=== PATIENT | male | born 1995 | race American Indian/Alaskan Native ===

== ENCOUNTER 2017-04-27 14:05 | Emergency (ER) | payer MEDICAID, OTHER ==
[2017-04-27 14:43] VITALS: TEMP 98.5; BMI 22.1
--- NOTE | 2017-04-27 14:44 | ED PDOC ---
Arrival/HPI - General Time Seen by Provider: 04/27/17 14:32 Historian: Patient - History of Present Illness Narrative History of Present Illness (Text): 04/27/17 14:33 Pt is a 22 year old male, with no past medical history, presents to the Emergency department complaining of a possible broken nose. He reports that five days ago he rolled over on the floor and his nose hit the floor. After this occurred he had epistaxis, had pain in his nose, and noticed bruising between his eyes and cheekbones. He notes that he currently does not feel any pain, but notices a mild difference in his nose symmetry compared to normal. Patient denies any headache, nausea, fever, neck pain, back pain, or other complaints. PMD: Dr. Sylvia Matos Time/Duration: < week (5 days ago) Symptom Onset: Sudden Symptom Course: Improving Activities at Onset: Light Modifying Factors (Text): None Context: Home Associated Symptoms (Text): None Past Medical History - Provider Review Nursing Documentation Reviewed: Yes Family/Social History - Physician Review Nursing Documentation Reviewed: Yes Family/Social History: No Known Family HX Smoking Status: Light Smoker < 10 Cigarettes Daily Hx Alcohol Use: Yes Frequency of alcohol use: Socially Allergies/Home Meds Allergies/Adverse Reactions: Allergies No Known Allergies Allergy (Verified 04/27/17 14:39) Review of Systems - Physician Review All systems were reviewed & negative as marked: Yes - Review of Systems Constitutional: absent: Fevers ENT: Epistaxis (occurred right after hit in the nose), Other (nose is described as crooked) Cardiovascular: absent: Chest Pain Gastrointestinal: absent: Nausea, Vomiting Musculoskeletal: absent: Neck Pain Neurological: absent: Headache Physical Exam Vital Signs Reviewed: Yes Vital Signs Temp Pulse Resp BP Pulse Ox 04/27/17 16:15 61 16 121/58 L 100 04/27/17 14:36 98.5 F 86 14 130/72 98 Temperature: Afebrile Blood Pressure: Normal Pulse: Regular Respiratory Rate: Normal Appearance: Positive for: Well-Appearing, Non-Toxic, Comfortable Pain Distress: None Mental Status: Positive for: Alert and Oriented X 3 - Systems Exam Head: Present: Atraumatic, Normocephalic Extroacular Muscles: Present: EOMI Conjunctiva: Present: Normal Nose (External): Present: Other (non-tender, mild asymmetry) Nose (Internal): Present: No Active Bleeding Neck: Present: Normal Range of Motion Respiratory/Chest: Present: Clear to Auscultation, Good Air Exchange, Respiratory Distress Cardiovascular: Present: Regular Rate and Rhythm, Normal S1, S2. No: Murmurs Upper Extremity: Present: Normal Inspection. No: Cyanosis, Edema Lower Extremity: Present: Normal Inspection. No: Edema Neurological: Present: GCS=15, Speech Normal Skin: Present: Warm, Dry, Normal Color. No: Rashes Psychiatric: Present: Alert, Oriented x 3, Normal Insight, Normal Concentration Medical Decision Making ED Course and Treatment: 04/27/17 14:33 Impression: Nasal trauma Differential Diagnosis included but are not limited to: nasal contusion vs. nasal fracture Plan: -- Facial CT with no contrast -- Reassess and disposition Progress Notes: - RAD Interpretation Radiology Orders: 04/27/17 14:39 ORBITS/ FACIALS W/O CONTRAST [CT] Stat - Scribe Statement The provider has reviewed the documentation as recorded by the Scribe 04/27/2017 Lashaun Ascencio training with Agustin Ibrahim Provider Scribe Attestation: All medical record entries made by the Scribe were at my direction and personally dictated by me. I have reviewed the chart and agree that the record accurately reflects my personal performance of the history, physical exam, medical decision making, and the department course for this patient. I have also personally directed, reviewed, and agree with the discharge instructions and disposition. Disposition/Present on Arrival - Present on Arrival Any Indicators Present on Arrival: No - Disposition Have Diagnosis and Disposition been Completed?: Yes Diagnosis: Nasal bone fracture Disposition: HOME/ ROUTINE Disposition Time: 15:55 Patient Plan: Discharge Condition: STABLE Discharge Instructions (ExitCare): Nasal Fracture (ED) Print Language: CYMRO Additional Instructions: Mr. Marmolejo, thank you for letting us take care of you today. Return to the ER if any problems. You need to follow up with the [id number] (ENT) doctor. His name is Dr. Rubi. Call the phone number listed below to make an appointment with Dr. Rubi. If you are having any pain, take Tylenol. Referrals: Sandeep Rubi DO [Staff Provider] - Follow up with primary Forms: [employer] (Latvian)
--- NOTE | 2017-04-27 15:48 | CT ---
PROCEDURE: CT ORBITS WITHOUT CONTRAST. HISTORY: Nasal trauma; r/o nasal fracture COMPARISON: None available. TECHNIQUE: Axial CT images of the orbits were obtained. Coronal and sagittal reformats were generated. Radiation dose: Total exam DLP = 772.43 mGy-cm. This CT exam was performed using one or more of the following dose reduction techniques: Automated exposure control, adjustment of the mA and/or kV according to patient size, and/or use of iterative reconstruction technique. FINDINGS: There is an acute mildly displaced fracture in the left anterior nasal bone. No acute fracture in the right nasal bone. The nasal septum is deviated to the left. RIGHT ORBIT: RIGHT BONY ORBIT: Normal. RIGHT INTRAORBITAL STRUCTURES: Globe: Normal. Extraocular muscles: Normal. Post septal space: Normal. Optic Nerve: Normal. Lacrimal Apparatus: Normal. RIGHT PRESEPTAL SOFT TISSUES: Normal. LEFT ORBIT: LEFT BONY ORBIT: Normal. LEFT INTRAORBITAL STRUCTURES: Globe: Normal. Extraocular muscles: Normal. Post septal space: Normal Optic Nerve: Normal. . Lacrimal Apparatus: Normal. LEFT PRESEPTAL SOFT TISSUES: Normal. OTHER: None. IMPRESSION: 1. Acute mildly displaced fracture in the left anterior nasal bone. 2. No acute maxillofacial fracture.
[2017-04-27 16:33] VITALS: BP 121/58; PULSE 61; RESP 16; O2SAT 100
== END 2017-04-27 16:15 | disposition home or self-care (01) ==
LOC: ED 14:05
DX: S02.2XXA Fracture of nasal bones, initial encounter for closed fracture (principal); W22.8XXA Striking against or struck by other objects, initial encounter; F17.210 Nicotine dependence, cigarettes, uncomplicated

== ENCOUNTER 2018-06-07 21:47 | Emergency (ER) | payer MEDICAID, OTHER ==
[2018-06-07 22:05] VITALS: BMI 22.8
[2018-06-07 22:06] VITALS: BP 137/88; PULSE 97; RESP 16; TEMP 98.4
--- NOTE | 2018-06-07 22:14 | ED PDOC ---
Arrival/HPI - General Chief Complaint: Burn Time Seen by Provider: 06/07/18 21:51 Historian: Patient - History of Present Illness Narrative History of Present Illness (Text): 06/07/18 22:11 A 23 year old male, with no significant past medical history, presents to the emergency department for further evaluation of a burn to the left hand s/p picking up a hot item at work 1-2 hours ago. Patient notes that after sustaining the injury, he ran his left hand under cold water and put ointment on it. Patient notes that he is right hand dominant. Patient denies any other injury. The patient denies fevers, chills, headache, dizziness, sore throat, cough, chest pain, shortness of breath, dyspnea on exertion, abdominal pain, nausea, vomiting, diarrhea, neck/back pain, urinary/bowel changes or any other complaint. PMD: Dr. Matos Time/Duration: 1-3 hours Symptom Onset: Sudden Symptom Course: Unchanged Activities at Onset: Rest, Light Context: Work Past Medical History - Provider Review Nursing Documentation Reviewed: Yes - Psychiatric Hx Substance Use: No - Surgical History Other/Comment: Right metacarpal sx - Anesthesia Hx Anesthesia: Yes Hx Anesthesia Reactions: No Hx Malignant Hyperthermia: No Family/Social History - Physician Review Nursing Documentation Reviewed: Yes Family/Social History: No Known Family HX Smoking Status: Light Smoker < 10 Cigarettes Daily Hx Alcohol Use: Yes Frequency of alcohol use: Socially Hx Substance Use: No Allergies/Home Meds Allergies/Adverse Reactions: Allergies No Known Allergies Allergy (Verified 06/07/18 22:05) Home Medications: Home Meds Medication Instructions Recorded Confirmed No Known Home Med 06/07/18 06/07/18 Review of Systems - Physician Review All systems were reviewed & negative as marked: Yes - Review of Systems Constitutional: absent: Fevers, Night Sweats Respiratory: absent: SOB, Cough Cardiovascular: absent: Chest Pain, ROCHA Gastrointestinal: absent: Abdominal Pain, Stool Changes, Diarrhea, Nausea, Vomiting Genitourinary Male: absent: Urinary Output Changes Musculoskeletal: absent: Back Pain, Neck Pain Skin: Other (Burn to the left hand) Neurological: absent: Headache, Dizziness Physical Exam Vital Signs Reviewed: Yes Vital Signs Temp Pulse Resp BP Pulse Ox 06/07/18 22:06 98.4 F 97 H 16 137/88 98 06/07/18 22:05 98.4 F 97 H 16 137/88 98 Temperature: Afebrile Blood Pressure: Normal Pulse: Tachycardic Respiratory Rate: Normal Appearance: Positive for: Well-Appearing, Non-Toxic, Comfortable Pain Distress: None Mental Status: Positive for: Alert and Oriented X 3 - Systems Exam Head: Present: Atraumatic, Normocephalic Pupils: Present: PERRL Extroacular Muscles: Present: EOMI Conjunctiva: Present: Normal Mouth: Present: Moist Mucous Membranes Neck: Present: Normal Range of Motion Respiratory/Chest: Present: Clear to Auscultation, Good Air Exchange. No: Respiratory Distress, Accessory Muscle Use Cardiovascular: Present: Regular Rate and Rhythm, Normal S1, S2. No: Murmurs Abdomen: No: Tenderness, Distention, Peritoneal Signs Back: Present: Normal Inspection Upper Extremity: Present: Normal Inspection. No: Cyanosis, Edema Lower Extremity: Present: Normal Inspection. No: Edema Neurological: Present: GCS=15, CN II-XII Intact, Speech Normal Skin: Present: Other (Superficial second degree sims to the 1st, 2nd, and 3rd digts of te left hand. ) Psychiatric: Present: Alert, Oriented x 3, Normal Insight, Normal Concentration Medical Decision Making ED Course and Treatment: 06/07/18 22:15 Impression: A 23 year old male presents to the emergency department for further evaluation of a burn he sustained at work 1-2 hours ago. Plan: -- Reassess and disposition Progress Notes: - Medication Orders Current Medication Orders: Discontinued Medications Ibuprofen (Motrin Tab) 600 mg PO STAT STA Stop: 06/07/18 22:22 - Scribe Statement The provider has reviewed the documentation as recorded by the Valentina Wu Provider Scribe Attestation: All medical record entries made by the Scribe were at my direction and personally dictated by me. I have reviewed the chart and agree that the record accurately reflects my personal performance of the history, physical exam, medical decision making, and the department course for this patient. I have also personally directed, reviewed, and agree with the discharge instructions and disposition. Disposition/Present on Arrival - Present on Arrival Any Indicators Present on Arrival: No History of DVT/PE: No History of Uncontrolled Diabetes: No Urinary Catheter: No History of Decub. Ulcer: No History Surgical Site Infection Following: None - Disposition Have Diagnosis and Disposition been Completed?: Yes Diagnosis: Second degree burn Disposition: HOME/ ROUTINE Disposition Time: 22:05 Patient Problems: Current Active Problems Problem Status Onset Second degree burn Acute Condition: GOOD Discharge Instructions (ExitCare): Skin Sims (DC) Additional Instructions: HUEY DUQUE, thank you for letting us take care of you today. Your provider was Michael Villanueva DO and you were treated for BURN ON (L) HAND. The emergency medical care you received today was directed at your acute symptoms. If you were prescribed any medication, please fill it and take as directed. It may take several days for your symptoms to resolve. Return to the Emergency Department if your symptoms worsen, do not improve, or if you have any other problems. Please contact your doctor or call one of the physicians/clinics you have been referred to that are listed on the Patient Visit Information form that is included in your discharge packet. Bring any paperwork you were given at discharge with you along with any medications you are taking to your follow up visit. Our treatment cannot replace ongoing medical care by a primary care provider outside of the emergency department. Thank you for allowing the [facility] team to be part of your care today. Keep wound clean and dry until healed. You may get wound wet. Follow up with your primary care doctor or the emergency room if there are signs of infection. Referrals: [email or web address] Caleb Downs, [Non-Staff] - Follow up with primary Forms: [employer] (Azeri)
[2018-06-07 22:34] VITALS: O2SAT 99
== END 2018-06-07 22:33 | disposition home or self-care (01) ==
LOC: ED 21:47
DX: T23.242A Burn of second degree of multiple left fingers (nail), including thumb, initial encounter (principal); X19.XXXA Contact with other heat and hot substances, initial encounter; Y92.89 Other specified places as the place of occurrence of the external cause; Y99.0 Civilian activity done for income or pay